=== PATIENT | male | born 1960 | race Caucasian/White ===

== ENCOUNTER 2019-11-06 14:30 | Outpatient (CLI) | payer OTHER, SELFPAY ==
--- NOTE | ~2019-11-06 | XR_ITS ---
EXAMINATION: XR chest 2V 11/06/2019 15:05 INDICATION: Chills and fatigue PROCEDURE: 2 view chest COMPARISON: No prior studies for comparison. FINDINGS: The lungs are clear. The cardiomediastinal silhouette is within normal limits. There are no pleural effusions. There is no pneumothorax suspected. IMPRESSION: 1: NO ACUTE CARDIOPULMONARY DISEASE. Reviewed, dictated and finalized at location A. 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
[2019-11-06 15:14] LABS: Basophils Percent Auto 0.5 % (0.2-1.2); Eosinophils Percent Auto 0.1 % (0-4.4); Hematocrit 45.7 % (42.0-52.0); Hemoglobin 16.1 g/dL (14.0-18.0); Immature Granulocyte Absolute 0.11 K/mm3 (0.00-0.031); Immature Granulocyte Percent A 1.5 % (0-0.5); Lymphocytes Percent Auto 16.3 % (18.3-44.2); Mean Corpuscular HGB Conc 35.2 g/dl (32-36); Mean Corpuscular Hemoglobin 31.1 pg (26-34); Mean Corpuscular Volume 88.2 fl (80-100); Mean Platelet Volume 10.4 fl (7.4-10.4); Monocytes Absolute Auto 0.5 K/mm3 (0.1-0.6); Monocytes Percent Auto 7.2 % (2.6-8.5); Neutrophils Absolute Auto 5.5 K/mm3 (1.3-6.7); Neutrophils Percent Auto 74.4 % (45.5-73.1); Platelet Count Result 256 k/mm3 (150-375); Red Blood Count 5.18 M/mm3 (4.6-6.20); Red Cell Distribution Width 11.8 % (11.5-14.5); White Blood Count 7.4 K/mm3 (4.5-10.0)
[2019-11-06 15:18] LABS: Influenza Control Positive
[2019-11-06 15:23] LABS: Alanine Aminotransferase 26 U/L (4-50); Albumin Level 4.6 g/dL (3.5-5.1); Alkaline Phosphatase 94 U/L (38-126); Aspartate Amino Transferase 27 U/L (17-59); Bilirubin,Total 0.7 mg/dL (0.2-1.3); Blood Urea Nitrogen 18 mg/dL (9-20); Calcium 9.8 mg/dL (8.4-10.2); Carbon Dioxide 27 mmol/L (22-30); Chloride 99 mmol/L (98-107); Estimated Glomerular Filt Rate > 60; Glucose 103 mg/dL (75-110); Potassium 3.9 mmol/L (3.4-5.0); Sodium 136 mmol/L (137-145)
== END 2019-11-06 14:31 | disposition home or self-care (01) ==
PROVIDERS: PCP Family Medicine; Visit Provider Family Medicine
DX: R50.9 Fever, unspecified (principal); R68.83 Chills (without fever); R68.89 Other general symptoms and signs
CPT/HCPCS: 36415; 71046; 80053; 85025; 87804

== ENCOUNTER → 2022-05-24 11:46 | Outpatient (CLI) | payer BC, SELFPAY ==
--- NOTE | ~2022-05-24 | XR_ITS ---
XR lumbar spine min 4V 05/24/2022 12:15 Indication: Back pain Procedure: 5 views lumbar spine Comparison: No prior studies for comparison. Findings: Vertebral body heights are maintained. There is facet hypertrophy at L4-5 and L5-S1. No acu te fracture, subluxation or dislocation. Mild levocurvature of the lumbar spine. Sacral foramen are s ymmetric. Impression: 1: Mild lumbar spondylosis. Reviewed, dictated and finalized at location B. Impression: 1: Mild lumbar spondylosis.
--- NOTE | ~2022-05-24 | XR_ITS ---
XR shoulder RT min 2V 05/24/2022 12:15 INDICATION: Right shoulder pain PROCEDURE: 4 views right shoulder COMPARISON: No prior studies for comparison. FINDINGS: Fracture, dislocation or subluxation is not identified. The soft tissues appear within norm al limits. No foreign bodies are identified. IMPRESSION: 1: No significant bone or joint abnormality. Reviewed, dictated and finalized at location B.
== END ==
PROVIDERS: PCP Family Medicine; Visit Provider Family Medicine
DX: M25.511 Pain in right shoulder (principal); M47.896 Other spondylosis, lumbar region
CPT/HCPCS: 72110; 73030

== ENCOUNTER 2022-05-24 12:20 | Outpatient (CLI) | payer BC, SELFPAY ==
[2022-05-24 18:44] LABS: Basophils Absolute Auto 0.1 K/mm3 (0.0-0.1); Eosinophils Absolute Auto 0.1 K/mm3 (0-0.3); Eosinophils Percent Auto 1.9 % (0-4.4); Hematocrit 45.3 % (42.0-52.0); Hemoglobin 15.3 g/dL (14.0-18.0); Immature Granulocyte Absolute 0.02 K/mm3 (0.00-0.031); Immature Granulocyte Percent A 0.3 % (0-0.5); Lymphocytes Absolute Auto 1.51 K/mm3 (0.9-3.2); Lymphocytes Percent Auto 24.3 % (18.3-44.2); Mean Corpuscular HGB Conc 33.8 g/dl (32-36); Mean Corpuscular Hemoglobin 31.4 pg (26-34); Mean Corpuscular Volume 92.8 fl (80-100); Mean Platelet Volume 10.3 fl (7.4-10.4); Monocytes Absolute Auto 0.4 K/mm3 (0.1-0.6); Monocytes Percent Auto 6.9 % (2.6-8.5); Neutrophils Absolute Auto 4.1 K/mm3 (1.3-6.7); Neutrophils Percent Auto 65.6 % (45.5-73.1); Platelet Count Result 242 k/mm3 (150-375); Red Blood Count 4.88 M/mm3 (4.6-6.20); White Blood Count 6.2 K/mm3 (4.5-10.0)
[2022-05-24 20:04] LABS: Alanine Aminotransferase 19 U/L (6-50); Albumin Level 4.3 g/dL (3.5-5.1); Alkaline Phosphatase 89 U/L (38-126); Anion Gap 8 mmol/L (8-16); Aspartate Amino Transferase 35 U/L (17-59); Bilirubin,Total 0.7 mg/dL (0.2-1.3); Blood Urea Nitrogen 15 mg/dL (9-20); Calcium 9.6 mg/dL (8.4-10.2); Carbon Dioxide 31 mmol/L (22-30); Chloride 94 mmol/L (98-107); Cholesterol 178 mg/dL (0-200); Estimated Glomerular Filt Rate > 60; Glucose 84 mg/dL (65-110); HDL Direct 28 mg/dL; Potassium 3.9 mmol/L (3.4-5.0); Sodium 133 mmol/L (137-145); Triglycerides 198 mg/dL (<150)
[2022-05-24 20:15] LABS: LDL Cholesterol Direct 111 mg/dL
[2022-05-24 20:31] LABS: Prostate Specific Antigen 0.5 ng/mL (< OR = 4.0)
[2022-05-24 20:51] LABS: Hemoglobin A1C 5.3 % (<5.7)
== END 2022-05-24 12:21 | disposition home or self-care (01) ==
LOC: ANHGOSHLAB 12:24
PROVIDERS: PCP Family Medicine; Visit Provider Family Medicine
DX: F17.210 Nicotine dependence, cigarettes, uncomplicated (principal); I10 Essential (primary) hypertension; E78.2 Mixed hyperlipidemia; R73.01 Impaired fasting glucose; K21.9 Gastro-esophageal reflux disease without esophagitis; Z12.5 Encounter for screening for malignant neoplasm of prostate
CPT/HCPCS: 36415; 80053; 80061; 83036; 84153; 84443; 85025; G0103

== ENCOUNTER 2022-06-12 08:16 | Outpatient (CLI) | payer BC, SELFPAY ==
--- NOTE | ~2022-06-12 | MR_ITS ---
EXAMINATION: MR lumbar spine wo con DATE: 06/12/2022 09:28 INDICATION: Chronic low back pain radiating down both legs with numbness. Leg paresthesias. TECHNIQUE: Magnetic resonance imaging (MRI) of the lumbar spine was performed without intravenous con trast. Sequences included sagittal T2-weighted FSE, sagittal T2-weighted FS FSE, sagittal T1-weighted FSE, and axial T2-weighted FSE. COMPARISON: None FINDINGS: There is 4 degrees levocurvature of lumbar spine. There is mild chronic anterior wedging of T12 and L1 vertebral bodies associated with Schmorl's nodes. Intervertebral disc heights are normal. The distal spinal cord signal intensity is normal. The conus medullaris is at L1. There are cysts in right kidney measuring up to 14 mm. The following disc levels are specifically discussed: L1-L2: The disc does not extend beyond the endplate margin. There is moderate bilateral facet joint o steoarthritis. There is no neural foraminal stenosis. There is no central canal stenosis. L2-L3: The disc does not extend beyond the endplate margin. There is mild bilateral facet joint osteo arthritis. There is no neural foraminal stenosis. There is no central canal stenosis. L3-L4: The disc does not extend beyond the endplate margin. There is mild bilateral facet joint osteo arthritis. There is no neural foraminal stenosis. There is no central canal stenosis. L4-L5: The disc does not extend beyond the endplate margin. There is mild bilateral facet joint osteo arthritis. There is no neural foraminal stenosis. There is no central canal stenosis. L5-S1: The disc does not extend beyond the endplate margin. There is severe right and moderate left f acet joint osteoarthritis. There is no neural foraminal stenosis. There is no central canal stenosis. IMPRESSION: 1. Lumbar facet joint osteoarthritis. Reviewed, dictated and finalized at location A.
== END 2022-06-12 08:17 | disposition home or self-care (01) ==
PROVIDERS: PCP Family Medicine; Visit Provider Family Medicine
DX: R20.2 Paresthesia of skin (principal); M51.36 Other intervertebral disc degeneration, lumbar region
CPT/HCPCS: 72148

== ENCOUNTER 2022-07-12 00:58 | Day surgery (SDC) | payer BC, SELFPAY ==
[2022-06-23 13:58] VITALS: BMI 34.0
[2022-07-12 08:10] VITALS: BP 143/96; PULSE 87; RESP 18; TEMP 36.1; O2SAT 100
[2022-07-12] MEDS: LACTATED RINGERS 1,000 ML 150 ML IV CONT (08:20)
--- NOTE | 2022-07-12 08:22 | PM.HPGS ---
History of Present Illness History of Present Illness Consent: Risks, benefits, and alternatives have been discussed and questions answered. Patient agrees to proceed with procedure. Chief complaint: neoplasm screening Narrative: José Jefferson is a 62 year old male Referred for colon cancer screening. This is his 1st colonoscopy. [facility] Surgical History Surgical History H/O rectal sphincterotomy Family History Family History Father Hypertension Family history of cardiovascular disease Acute myocardial infarction, Onset Age: 60 Mother Hypertension Sibling Hypertension Social History Social History Smoking packs per day: 1.5 Smoking cigarettes per day: 30.0 Years smoked: 10 Smoking pack-years: 15.00 Smoking status: Current every day smoker Alcohol intake: current Alcohol use details: socially Substance use: current Substance use type: marijuana Living arrangements: with family Spiritual care concerns: No Meds Home Medications and Allergies Home Medications Medication Instructions Recorded Confirmed Type omeprazole 20 mg capsule,delayed 20 mg PO DAILY 08/21/19 06/23/22 History release metoprolol succinate 100 mg See Rx Instructions .Route 11/20/21 06/23/22 Rx tablet,extended release 24 hr .COMPLEX #90 tabs lisinopril 20 1 tablet PO DAILY #90 tabs 03/16/22 06/23/22 Rx mg-hydrochlorothiazide 25 mg tablet citalopram 40 mg tablet See Rx Instructions .Route 04/28/22 06/23/22 Rx .COMPLEX #90 tabs Allergies Allergy/AdvReac Type Severity Reaction Status Date / Time bupropion Allergy unknown Verified 07/12/22 08:08 esomeprazole Allergy Unknown Verified 07/12/22 08:08 fluoxetine Allergy unkown Verified 07/12/22 08:08 morphine AdvReac Hallucinati Verified 07/12/22 08:08 ng Vital Signs Vital Signs - 24 hr 07/12/22 08:10 Temperature 36.1 C L Pulse Rate 87 Respiratory Rate 18 Blood Pressure 143/96 H Pulse Oximetry 100 Oxygen Delivery Room Air Assessment and Plan Assessment and plan (1) Colon cancer screening: Code(s): Z12.11 - Encounter for screening for malignant neoplasm of colon Status: Acute Assessment and Plan: Colonoscopy with possible biopsy or polypectomy or cautery or injection of substances.
--- NOTE | 2022-07-12 08:27 | P.PNAN_ITS ---
Anes - Initial Pre Proc Eval Procedure: Operation Date: 07/12/22 09:30 Proposed Procedures p Screening Colonoscopy - Pedro Pablo Andrews MD Date/Time: 07/12/22 08:27 Surgeon: Pedro Pablo Andrews MD Pre Op Diagnosis: neoplasm screening Patient Data Age: 62 Gender: M Height: 1.83 m Weight: 113.9 kg Last Vital Signs Temp 97 F L 07/12/22 08:10 Pulse 87 07/12/22 08:10 Resp 18 07/12/22 08:10 BP 143/96 H 07/12/22 08:10 Pulse Ox 100 07/12/22 08:10 O2 Del Method Room Air 07/12/22 08:10 Allergies Allergy/AdvReac Type Severity Reaction Status Date / Time bupropion Allergy unknown Verified 07/12/22 08:08 esomeprazole Allergy Unknown Verified 07/12/22 08:08 fluoxetine Allergy unkown Verified 07/12/22 08:08 morphine AdvReac Hallucinati Verified 07/12/22 08:08 ng Home Medications Medication Instructions Recorded Confirmed Type omeprazole 20 mg capsule,delayed 20 mg PO DAILY 08/21/19 06/23/22 History release metoprolol succinate 100 mg See Rx Instructions .Route 11/20/21 06/23/22 Rx tablet,extended release 24 hr .COMPLEX #90 tabs lisinopril 20 1 tablet PO DAILY #90 tabs 03/16/22 06/23/22 Rx mg-hydrochlorothiazide 25 mg tablet citalopram 40 mg tablet See Rx Instructions .Route 04/28/22 06/23/22 Rx .COMPLEX #90 tabs Patient hx anesthesia problems: none Family hx anesthesia problems: none Results Review: All pre-operative results and documents have been reviewed as part of the pre- operative evaluation. [facility] Surgical History Surgical History H/O rectal sphincterotomy Family History Family History Father Hypertension Family history of cardiovascular disease Acute myocardial infarction, Onset Age: 60 Mother Hypertension Sibling Hypertension Social History Social History Smoking packs per day: 1.5 Smoking cigarettes per day: 30.0 Years smoked: 10 Smoking pack-years: 15.00 Smoking status: Current every day smoker Alcohol intake: current Alcohol use details: socially Substance use: current Substance use type: marijuana Living arrangements: with family Spiritual care concerns: No Anes - Eval Final PreProcedure Day of Procedure 07/12/22 08:27 Patient weight: obese Heart: regular rate and rhythm Lungs: clear to auscultation Airway: Mallampati scale class II Neurological: alert and oriented Last oral intake: >/= 8 hours ASA classification: III Emergent: no Anesthetic plan: proceed Anesthesia type and monitoring: general GIVS and standard monitoring Results Review: All pre-operative results and documents have been reviewed as part of the pre-operative evaluation. Informed Consent: The patient's anesthetic plan and its attendant risks and benefits were discussed with the patient/family/POA. Questions were solicited and answers provided to the satisfaction of the patient/family/POA.
[2022-07-12 09:16] VITALS: BP 130/95; PULSE 84; RESP 22; O2SAT 96
[2022-07-12 09:26] VITALS: BP 144/102; PULSE 79; RESP 26; O2SAT 98
[2022-07-12 09:36] VITALS: BP 139/98; PULSE 76; RESP 24; O2SAT 98
== END 2022-07-12 09:51 | disposition home or self-care (01) ==
PROVIDERS: PCP Family Medicine; Visit Provider Internal Medicine Gastroenterology
PROC: 0DJD8ZZ Inspection of Lower Intestinal Tract, Via Natural or Artificial Opening Endoscopic (ICD-10-PCS; CPT 45378; principal; 2022-07-12 09:30)
DX: Z12.11 Encounter for screening for malignant neoplasm of colon (principal); D12.5 Benign neoplasm of sigmoid colon; D12.3 Benign neoplasm of transverse colon; F17.210 Nicotine dependence, cigarettes, uncomplicated; E66.9 Obesity, unspecified; Z68.34 Body mass index [BMI] 34.0-34.9, adult
CPT/HCPCS: 45381; 45385; 88305; J2704; J7120

== ENCOUNTER 2023-05-18 07:41 | Outpatient (CLI) | payer BC, SELFPAY ==
--- NOTE | ~2023-05-18 | NM_ITS ---
EXAMINATION: NM boni stress w perfusion DATE: 05/18/2023 12:26 INDICATION: Chest pain, unspecified. TECHNIQUE: Rest images were obtained following intravenous administration of 10.9 mCi Tc99m tetrofosm in (Myoview). The patient was infused intravenously with Lexiscan (regadenoson). Then, 34.9 mCi Tc99m tetrofosmin (Myoview) was administered intravenously, and stress images were obtained. Data was yan nstructed into short axis and horizontal and vertical long axis SPECT images. Gated SPECT images were also obtained. COMPARISON: None. FINDINGS: There is no definite reversible or fixed perfusion abnormality to suggest ischemia or infar ction. There is no segmental wall motion abnormality. Left ventricular ejection fraction measures 6 3%. IMPRESSION: 1. No definite ischemia or infarct. 2. Normal left ventricular ejection fraction measuring 63%. Reviewed, dictated and finalized at location A.
--- NOTE | 2023-05-18 07:45 | ECHO_ITS ---
Patient Info Name: José Jefferson Age: 62 years : 1960 Gender: Male Ht: 72 in Wt: 255 lbs BSA: 2.46 m2 HR: 61 bpm BP: 133 / 93 mmHg Heart Rhythm: Sinus Rhythm Technical Quality: Fair Exam Date: 05/18/2023 7:56 AM Exam Location: [facility] Patient Status: Outpatient Admit Date: 05/18/2023 Staff Ordering Physician: Alfonso Silva DO Art Installer: Alyx Byers RDCS Attending Provider: Alfonso Silva DO Referring Physician: Ricardo SOSA; Exam Type: CA echo doppler color flow Study Info Indications R07.9 - Chest pain, unspecified R00.2 - Palpitations Complete two-dimensional, color flow and Doppler transthoracic echocardiogram is performed. Summary 1. Complete two-dimensional, color flow and Doppler transthoracic echocardiogram is performed. 2. Left ventricular chamber dimension is normal. 3. Ventricular septum is sigmoid shaped. No LVOT obstruction. 4. Left ventricular systolic function is normal, estimated at 60-65%. 5. There is mild concentric increased left ventricular wall thickness. 6. E/e' 7 is not elevated. 7. No pulmonary hypertension, estimated pulmonary arterial systolic pressure is 39 mmHg. Left Ventricle E/e' 7 is not elevated. Ventricular septum is sigmoid shaped. No LVOT obstruction. Left ventricular chamber dimension is normal. Left ventricular systolic function is normal, estimated at 60-65%. There is mild concentric increased left ventricular wall thickness. The left ventricular diastolic function is grade I diastolic dysfunction. Right Ventricle Right ventricular systolic function is normal and with normal TAPSE 2.2 cm. Right ventricular chamber dimension is normal. Left Atria Left atrial chamber dimension is normal. Right Atria Right atrial chamber dimension is normal. Aortic Valve The aortic valve is trileaflet. There is no aortic valve stenosis. There is no aortic valve regurgitation. Pulmonic Valve There is no pulmonic regurgitation. Mitral Valve There is no mitral valve stenosis. There is no mitral valve regurgitation. Tricuspid Valve There is no tricuspid valve regurgitation. No pulmonary hypertension, estimated pulmonary arterial systolic pressure is 39 mmHg. Pericardium/Pleural There is no pericardial effusion. Inferior Vena Cava Normal inferior vena cava with >50% collapse upon inspiration consistent with normal right atrial pressure, 5 mmHg. Aorta The aortic root size at the sinus of Valsalva is normal. Left Ventricular Outflow Tract Name Value Normal LVOT 2D LVOT Diameter 2.0 cm LVOT Doppler LVOT Peak Gradient 5 mmHg LVOT Mean Gradient 3 mmHg LVOT VTI 24 cm LVOT VTI/AV VTI Ratio 0.8 LVOT Stroke Volume 76 ml LVOT CO 4.1 l/min LVOT CI 1.6 l/min/m2 Pulmonic Valve Name Value Normal RVOT Doppler
--- NOTE | 2023-05-18 07:46 | EST_ITS ---
Patient Info Name: José Jefferson Age: 62 years : 1960 Gender: Male Ht: 72 in Wt: 255 lbs BSA: 2.46 m2 HR: 60 bpm BP: 145 / 97 mmHg Heart Rhythm: Sinus Rhythm Exam Date: 05/18/2023 9:29 AM Exam Location: [facility] Stress Patient Status: Outpatient Admit Date: 05/18/2023 Staff Ordering Physician: Alfonso Silva DO Attending Provider: Alfonso Silva DO Exercise Technologist: Ca Washburn CT Exercise Physician: Ritchie Weston DO Exam Type: CA stress boni w NM Study Info Indications R07.89 - Other chest pain R00.2 - Palpitations A regadenoson stress test was performed. Summary 1. 1. Negative lexiscan stress test for ischemic ST changes by ECG criteria. 2. 2. Stable hemodynamics throughout the test. 3. 3. Nuclear scan to follow and will be reported separately. Please correlate with it. 4. 4. Patient informed of the above results. Protocol: Lexiscan Stress ECG Details Stage: REST Duration (min): 0 min : 58 sec HR (bpm): 59 SBP (mmHg): 145 DBP (mmHg): 97 Stage: REST Duration (min): 5 min : 59 sec HR (bpm): 62 SBP (mmHg): 145 DBP (mmHg): 97 Stage: STAGE 1 Duration (min): 1 min : 0 sec HR (bpm): 57 SBP (mmHg): 124 DBP (mmHg): 89 Stage: RECOVERY Duration (min): 1 min : 0 sec HR (bpm): 78 SBP (mmHg): 124 DBP (mmHg): 89 Stage: RECOVERY Duration (min): 2 min : 0 sec HR (bpm): 77 SBP (mmHg): 124 DBP (mmHg): 89 Stage: RECOVERY Duration (min): 3 min : 0 sec HR (bpm): 74 SBP (mmHg): 124 DBP (mmHg): 87 Stage: RECOVERY Duration (min): 3 min : 8 sec HR (bpm): 73 SBP (mmHg): 124 DBP (mmHg): 87 Rest HR: 62 bpm Peak HR: 79 bpm Rest Sys BP: 145 mmHg Peak Sys BP: 124 mmHg Max Pred HR: 159 bpm % Max Pred HR: 50 % Target HR: 135 bpm Max RPP: 9,796 bpm*mmHg Termination Reason: Completed protocol Cardiac Symptoms: Shortness of breath Total Time: 1 min : 0 sec Rest Nunez BP: 97 mmHg Peak Nunez BP: 89 mmHg Total Dose: 0.4 mg Resting ECG Sinus rhythm, IRBBB. Stress ECG No ST changes. Arrhythmias None. Report Signatures
== END 2023-05-18 07:42 | disposition home or self-care (01) ==
PROVIDERS: PCP Family Medicine; Visit Provider Family Medicine
DX: R00.2 Palpitations (principal); R07.9 Chest pain, unspecified
CPT/HCPCS: 78452; 93017; 93306; A9502; J2785